=== PATIENT | male | born 1935 | race Caucasian/White ===

== ENCOUNTER → 2018-09-28 | Outpatient (CLI) | payer MEDICARE, BC, MEDICAID ==
[2018-09-28 15:35] LABS: BASO # 0.1 (0.0-0.2); BASO % 0.7 % (0.0-2.0); EOS # 0.3 (0.0-0.7); EOS % 3.8 % (0-4.0); GRAN # 5.2 (1.4-6.5); GRAN % 70.2 % (42.2-75.2); HEMATOCRIT 40.1 % (42.0-52.0); HEMOGLOBIN 13.2 g/dl (13.5-18.0); LYMPH # 0.8 (1.2-3.4); LYMPH % 11.3 % (20.0-51.0); MEAN CELL VOLUME 99 fl (80.0-100.0); MEAN CORPUSCULAR HEMOGLOBIN 33 pg (27.0-31.0); MEAN CORPUSCULAR HGB CONC 33 g/dl (33.0-37.0); MEAN PLATELET VOLUME 9.7 fl (7.4-10.4); MONO % 13.6 % (1.7-9.3); PLATELET COUNT 230 K/mm3 (130-400); RED BLOOD COUNT 4.06 M/mm3 (4.20-5.60); REDCELL DISTRIBUTION WIDTH-CV 13.1 % (11.5-14.5)
[2018-09-28 15:48] LABS: ALBUMIN 3.5 gm/dL (3.5-5.0); BILIRUBIN,TOTAL 0.5 mg/dL (0.0-1.0); CALCIUM 8.8 mg/dL (8.4-10.2); CREATININE, serum 1.68 (0.66-1.25); POTASSIUM 4.4 mmol/L (3.4-5.0); TOTAL PROTEIN 7.1 gm/dL (6.4-8.2)
== END ==
LOC: ZCOL.LAB 15:20
PROVIDERS: Nurse Practitioner Family
DX: N18.3 Chronic kidney disease, stage 3 (moderate) (principal); R41.82 Altered mental status, unspecified

== ENCOUNTER → 2018-11-24 | Outpatient (CLI) | payer MEDICARE, BC, MEDICAID ==
[2018-11-24 15:20] LABS: CALCIUM 8.6 mg/dL (8.4-10.2); CREATININE, serum 1.8 (0.66-1.25); POTASSIUM 4.4 mmol/L (3.4-5.0)
[2018-11-24 15:35] LABS: BASO # 0.1 (0.0-0.2); BASO % 0.7 % (0.0-2.0); EOS # 0.4 (0.0-0.7); EOS % 4.2 % (0-4.0); GRAN # 6.1 (1.4-6.5); GRAN % 63.5 % (42.2-75.2); HEMATOCRIT 45.1 % (42.0-52.0); HEMOGLOBIN 14.3 g/dl (13.5-18.0); LYMPH # 1.9 (1.2-3.4); LYMPH % 20.3 % (20.0-51.0); MEAN CELL VOLUME 101 fl (80.0-100.0); MEAN CORPUSCULAR HEMOGLOBIN 32 pg (27.0-31.0); MEAN CORPUSCULAR HGB CONC 32 g/dl (33.0-37.0); MEAN PLATELET VOLUME 10.1 fl (7.4-10.4); MONO % 10.8 % (1.7-9.3); PLATELET COUNT 187 K/mm3 (130-400); RED BLOOD COUNT 4.45 M/mm3 (4.20-5.60); REDCELL DISTRIBUTION WIDTH-CV 13.1 % (11.5-14.5)
== END ==
LOC: ZCOL.LAB 14:48
PROVIDERS: Nurse Practitioner Family
DX: I50.20 Unspecified systolic (congestive) heart failure (principal)

== ENCOUNTER 2021-05-24 03:46 | Emergency (ER) | payer MEDICARE, BC, MEDICAID ==
[~2021-05-24] VITALS: Ht 175.3 cm; Wt 81.8 kg
[2021-05-24 03:56] VITALS: TEMP 98.7
[2021-05-24 04:07] LABS: BASO % 0.1 % (0.0-2.0); GRAN # 9.9 K/mm3 (1.4-6.5); GRAN % 89.7 % (42.2-75.2); HEMATOCRIT 39.3 % (42.0-52.0); HEMOGLOBIN 13.2 g/dl (13.5-18.0); LYMPH # 0.3 K/mm3 (1.2-3.4); LYMPH % 2.4 % (20.0-51.0); MEAN CELL VOLUME 102 fl (80.0-100.0); MEAN CORPUSCULAR HEMOGLOBIN 34 pg (27-31); MEAN CORPUSCULAR HGB CONC 34 g/dl (33.0-37.0); MEAN PLATELET VOLUME 10.7 fl (7.4-10.4); MONO # 0.8 K/mm3 (0.1-0.6); MONO % 6.8 % (1.7-9.3); PLATELET COUNT 150 K/mm3 (130-400); RED BLOOD COUNT 3.87 M/mm3 (4.20-5.60); REDCELL DISTRIBUTION WIDTH-CV 13.5 % (11.5-14.5)
[2021-05-24 04:25] LABS: BILIRUBIN,TOTAL 0.9 mg/dL (0.2-1.2); CALCIUM 8.2 mg/dL (8.4-10.2); CREATININE, serum 2.39 mg/dL (0.72-1.25); POTASSIUM 4.9 mmol/L (3.5-4.5); TOTAL PROTEIN 6.6 gm/dL (6.2-8.1)
[2021-05-24 04:31] LABS: TROPONIN-I 0.023 ng/mL (0.00-0.033)
[2021-05-24 04:58] LABS: COLLECTION METHOD CLEAN CATCH
[2021-05-24 05:04] LABS: PH 5 (5-8); SQUAMOUS EPITHELIAL None Seen /hpf (0-10); URINE APPEARANCE Clear (CLEAR/HAZY); URINE BACTERIA None Seen /hpf (NONE SEEN); URINE BILIRUBIN Negative (NEGATIVE); URINE BLOOD Negative (NEGATIVE); URINE COLOR Yellow (YELLOW); URINE GLUCOSE Negative (NEGATIVE); URINE KETONE Negative (NEGATIVE); URINE LEUKOCYTE ESTERASE Negative (NEGATIVE); URINE NITRATE Negative (NEGATIVE); URINE PROTEIN(semi-quant) Negative (NEGATIVE); URINE RBC 0-2 /hpf (0-2); URINE UROBILINOGEN Negative (NEGATIVE)
[2021-05-24 07:15] VITALS: BP 103/64; PULSE 76
== END 2021-05-24 07:16 | disposition home or self-care (01) ==
LOC: COL.ER 03:46
PROVIDERS: Emergency Medicine
DX: U07.1 COVID-19 (principal); N17.9 Acute kidney failure, unspecified; D72.829 Elevated white blood cell count, unspecified; R74.01 Elevation of levels of liver transaminase levels; I25.10 Atherosclerotic heart disease of native coronary artery without angina pectoris; I50.9 Heart failure, unspecified
CPT/HCPCS: J7040

== ENCOUNTER 2021-05-29 11:12 | Inpatient (IN) | payer MEDICARE, BC, MEDICAID ==
[~2021-05-29] VITALS: Ht 175.3 cm; Wt 74.4 kg
[2021-05-29 11:57] LABS: HEMATOCRIT 43.6 % (42.0-52.0); HEMOGLOBIN 14.8 g/dl (13.5-18.0); MEAN CELL VOLUME 101 fl (80.0-100.0); MEAN CORPUSCULAR HEMOGLOBIN 34 pg (27-31); MEAN CORPUSCULAR HGB CONC 34 g/dl (33.0-37.0); MEAN PLATELET VOLUME 11.7 fl (7.4-10.4); PLATELET COUNT 119 K/mm3 (130-400); RED BLOOD COUNT 4.31 M/mm3 (4.20-5.60); REDCELL DISTRIBUTION WIDTH-CV 13.8 % (11.5-14.5)
[2021-05-29 12:19] LABS: ALBUMIN 2.7 gm/dL (3.4-4.8); BILIRUBIN,TOTAL 1.5 mg/dL (0.2-1.2); CALCIUM 8.3 mg/dL (8.4-10.2); CREATININE, serum 2.06 mg/dL (0.72-1.25); POTASSIUM 5.1 mmol/L (3.5-4.5); TOTAL PROTEIN 6.6 gm/dL (6.2-8.1)
[2021-05-29 12:35] LABS: NEUTROPHILS 96 % (42.0-75.2)
[2021-05-29 12:36] LABS: PLATELET ESTIMATE DECREASED (NORMAL)
[2021-05-29] MEDS ORDERED: LEVAQUIN 750MG750 M1 PO (12:39)
[2021-05-29] MEDS ORDERED: ASPIRIN E.C. 8181 MG PO (12:41)
[2021-05-29] MEDS ORDERED: CARDIZEM CD 18180 MG PO (12:41)
[2021-05-29] MEDS ORDERED: B-121000 MCG PO (12:42)
[2021-05-29] MEDS ORDERED: TYLENOL SU650 MG/SUP RC (13:57)
[2021-05-29] MEDS ORDERED: CORDARONE200 MG/TAB PO (14:00)
[2021-05-29] MEDS ORDERED: ARTIFICIAL TEAR15 M7 OP (14:01)
[2021-05-29] MEDS ORDERED: BANOPHEN MAXIMU1 CRE TOP (14:02)
[2021-05-29] MEDS ORDERED: LIPITOR 40MG TA40 MG PO (14:02)
[2021-05-29] MEDS ORDERED: GOOD NEIGHBOR P1 CRE TP (14:03)
[2021-05-29] MEDS ORDERED: GENTLE LAXATIVE10 MG RC (14:04)
[2021-05-29] MEDS ORDERED: BUSPAR10 MG PO (14:05)
[2021-05-29] MEDS ORDERED: BREO IH (14:05)
[2021-05-29] MEDS ORDERED: LEXAPRO20 MG PO (14:09)
[2021-05-29] MEDS ORDERED: FERROUS SU325 MG/TAB PO (14:10)
[2021-05-29] MEDS ORDERED: LEADER CLE17 GM/Dose PO (14:11)
[2021-05-29] MEDS ORDERED: PROAIR HFA0.09 MG/AC IH (14:14)
[2021-05-29] MEDS ORDERED: TYLENOL W/COD1 UDTAB PO (14:15)
[2021-05-29] MEDS ORDERED: HALLS9.1 MG PO (14:16)
[2021-05-29] MEDS ORDERED: HYDROCORTISONE30 G3 TP (14:17)
[2021-05-29] MEDS ORDERED: IMODIUM 2MG CAPS2 MG PO (14:17)
[2021-05-29] MEDS ORDERED: LASIX 20MG TABL20 MG PO (14:19)
[2021-05-29] MEDS ORDERED: SYNTHROID0.125 MG/T PO (14:20)
[2021-05-29] MEDS ORDERED: MILK OF MA400 MG/52 PO (14:21)
[2021-05-29] MEDS ORDERED: MUCINEX 60600 MG/TA1 PO (14:23)
[2021-05-29] MEDS ORDERED: MYLANTA MAXIMU355 M1 PO (14:24)
[2021-05-29] MEDS ORDERED: BASE, PCCA POLY1 FLA (14:25)
[2021-05-29] MEDS ORDERED: PROTONIX 40MG T40 MG PO (14:25)
[2021-05-29] MEDS ORDERED: PREPH RC (14:26)
[2021-05-29] MEDS ORDERED: ALDACTONE 25MG25 M1 PO (14:27)
[2021-05-29] MEDS ORDERED: TYLENOL 325MG325 MG PO (14:28)
[2021-05-29 16:09] VITALS: BP 115/57; PULSE 85; TEMP 98
--- NOTE | 2021-05-29 16:30 | NUR ---
Pt arrived to medical unit room 307 from ED. Oriented pt to room. A&Ox4. Heart rhythm afib per tele, rate controlled. Lungs coarse to auscultation. Pt noted to have wet sounding cough, denies productivity. Admission assessments and med rec completed. Pt on 8 L by oxymask. Denies pain or SOA. Taken off unit at this time for VQ scan. Pt's son updated and number placed on chart.
[2021-05-29 19:02] LABS: ARTERIAL BLD GAS O2 SATURATION 98.6 % (92-100); ARTERIAL BLD GAS TCO2 CT 21.5; ARTERIAL BLOOD GAS BASE EXCESS -7.3 (-2-2); ARTERIAL BLOOD GAS PCO2 47.2 mmHg (35-45); ARTERIAL BLOOD GAS pH 7.25 (7.35-7.45)
[2021-05-29 19:04] LABS: ARTERIAL BLOOD GAS PO2 157.5 mmHg (80-100)
--- NOTE | 2021-05-29 19:27 | NUR ---
182-This RN entered room to check on pt and found pt to have removed oxymask, fingers and face bluish in color. Placed oxymask back on pt and began talking to him, pt unable to answer verbally, only nodding. Set of vitals obtained, O2 sats 70%, HR 110s, BP 109/55. O2 increased to 15 L. Called ICU charge, medical charge, RT, house, and hospitalist. Remained w/pt monitoring O2 sats and encouraged pt to take deep breaths. 1831-ICU charge Emmy, RT, and supervisor malt house at bedside. Crash cart placed outside room. Pt hooked up to defibrillator set on monitor. RT began bagging pt. Sats reading 85-87%. 1835-BIPAP placed on pt, 25/04 100%. Sats increased to 90% 1841-EKG obtained. 1844-ABG drawn. At this time, pt resting in bed on BIPAP w/sats high 90s. Video monitor set up in pt's room for continuous monitoring as pt occasionally pulling at BIPAP mask. Report given to night cleaner nurse Lakeshia.
--- NOTE | 2021-05-29 19:45 | NUR ---
Received approval from TSERING Whipple to start amiodarone drip on Medical Floor.
[2021-05-29 20:00] VITALS: BP 99/69; PULSE 109; TEMP 97.9
[2021-05-29 23:19] VITALS: BP 97/64; PULSE 90; TEMP 97.7
--- NOTE | 2021-05-29 23:47 | NUR ---
AT 2004 AMIODARONE BOLUS INITATED TO LFA IV, LOW BP, RATE AT 110-115, 02 BIPAP 12/10 FIO2 60 PERCENT. AT 2014 BOLUS COMPLETE. PT TOLERATED WELL. SYSTOLIC REMAINS SOFT, PT REMAINS TACHYCARDIC. AT 2016 AMIO DRIP INITIATED AT 33.3CC/HR TO LFA IV. Q1 VITALS INTERVAL INITATED. THIS NURSE WILL ENSURE TO CONDUCT HOURLY ROUNDS AND CONTINUE TO CHECK IV SITE TO RULE OUT EXTRAVASATION/INFILTRATION. BED ALARM ON. PT VISIBLE TO NURSES STATION VIA MONITOR. PT REMAINS A/OX3, RESTING IN BED, NOT TOO VERBALLY ENGAGING AT THIS POINT, NO COGNITIVE CHANGES SINCE REPORT. NURSE WILL CONTINUE TO MONITOR.
[2021-05-30] VITALS (7 sets, daily range): BP systolic 92–101; BP diastolic 51–64; PULSE 82–107; TEMP 97.5–97.9
--- NOTE | 2021-05-30 00:47 | NUR ---
AT 0046 PT AMIODARONE DRIP CHANGED FROM 1MG/MIN TO 0.5MG/MIN AND INFUSING AT 17.267 PER HOUR TO LEFT FA IV. PT TOLERATING WELL. THIS NURSE WILL CONTINUE TO MONITOR.
--- NOTE | 2021-05-30 05:50 | NUR ---
DURING 0400 NURSE NOTICED PT'S LFA IV SITE REDENNED AND SLIGHTLY INFLAMED. THIS NURSE SUSPECTS INFILTRATION, HEAT PROVIDED, ARM ELEVATED. PT NOT GRIMACING TO TOUCH. NURSE WILL MONITOR. NEW IV INITATED ON RIGHT FOREARM.
--- NOTE | 2021-05-30 06:36 | NUR ---
UPON F.U OF PTS LFA PREVIOUS IV SITE REDNESS SUBISIDING, MILD SWELLING REMAINS. PT REMAINS A/OX4, NOT TOO VERBALLY RESPONSIVE BUT CAN HEAD NOD THAT HE IS NO PAIN AND CONFIRMS NOT TO TAKE OFF BIPAP. NODS IN AGREEMENT. 02 NEEDS UNCHANGED. REPORT GIVEN TO TSERING QUINTERO.
[2021-05-30 07:35] LABS: HEMOGLOBIN 13.5 g/dl (13.5-18.0); MEAN CELL VOLUME 100 fl (80.0-100.0); MEAN CORPUSCULAR HEMOGLOBIN 34 pg (27-31); MEAN CORPUSCULAR HGB CONC 34 g/dl (33.0-37.0); MEAN PLATELET VOLUME 12.2 fl (7.4-10.4); PLATELET COUNT 105 K/mm3 (130-400); RED BLOOD COUNT 4.01 M/mm3 (4.20-5.60); REDCELL DISTRIBUTION WIDTH-CV 13.7 % (11.5-14.5)
[2021-05-30 07:57] LABS: ALBUMIN 2.3 gm/dL (3.4-4.8); BILIRUBIN,TOTAL 1.8 mg/dL (0.2-1.2); CALCIUM 8.1 mg/dL (8.4-10.2); CREATININE, serum 2.36 mg/dL (0.72-1.25); POTASSIUM 4.6 mmol/L (3.5-4.5); TOTAL PROTEIN 5.7 gm/dL (6.2-8.1)
[2021-05-30 09:03] LABS: BAND 2 % (0-10); LYMPHOCYTE 1 % (20.0-51.0); NEUTROPHILS 92 % (42.0-75.2)
[2021-05-30 09:04] LABS: PLATELET ESTIMATE DECREASED (NORMAL)
[2021-05-30 10:10] LABS: COLLECTION METHOD CLEAN CATCH
--- NOTE | 2021-05-30 10:16 | NUR ---
PT IN BED, MORNING MEDICATIONS GIVEN. SHIFT ASSESSMENT COMPLETED. PT APPEARS VERY PALE AND COOL TO THE TOUCH. B/P LOW, AROUND 90/50. PT RESPONDS TO PAIN, WILL NOT FOLLOW AND COMMANDS. BIPAP ON AT THIS TIME. AMIODARONE GTT INFUSING. WILL CONTINUE TO MONITOR.
[2021-05-30 10:33] LABS: MUCOUS Present (NOT PRESENT); PH 5 (5-8); SQUAMOUS EPITHELIAL 0-2 /hpf (0-10); URINE APPEARANCE Hazy (CLEAR/HAZY); URINE BACTERIA None Seen /hpf (NONE SEEN); URINE BILIRUBIN Negative (NEGATIVE); URINE BLOOD Negative (NEGATIVE); URINE COLOR Amber (YELLOW); URINE GLUCOSE Negative (NEGATIVE); URINE KETONE Negative (NEGATIVE); URINE LEUKOCYTE ESTERASE Negative (NEGATIVE); URINE NITRATE Negative (NEGATIVE); URINE PROTEIN(semi-quant) Negative (NEGATIVE); URINE RBC 0-2 /hpf (0-2)
--- NOTE | 2021-05-30 10:53 | NUR ---
FREDERIC completed intake with son Tera Jasso [phone]. Son states that patient lives at [facility] but is unsure of which household with the assumption that he is in LTC. Son provides that patient utilizes a wheelchair and receives assistance with ADL's, PCP is Dr. Cruz, and pharmacy is [facility] he believes. Son states that he and his sisters Teressa Perez [phone], and Marcella [phone] are all DPOA/HC. Son provides plan is to return to [facility] if able to up on DC. SW will continue to follow. DC plan: return to [facility]
[2021-05-30 11:40] LABS: ARTERIAL BLD GAS O2 SATURATION 97.4 % (92-100); ARTERIAL BLD GAS TCO2 CT 20.2; ARTERIAL BLOOD GAS BASE EXCESS -5.8 (-2-2); ARTERIAL BLOOD GAS HCO3 19.1 meq/L (22-26); ARTERIAL BLOOD GAS PCO2 35.9 mmHg (35-45); ARTERIAL BLOOD GAS PO2 102.1 mmHg (80-100); ARTERIAL BLOOD GAS pH 7.34 (7.35-7.45)
--- NOTE | 2021-05-30 14:21 | NUR ---
[employer] faxed clinical updates to Adri.
[2021-05-31] VITALS (17 sets, daily range): BP systolic 87–122; BP diastolic 54–78; PULSE 72–116; TEMP 97–97.7
--- NOTE | 2021-05-31 04:31 | NUR ---
AT 0400 GOYAL INSERTED.16 COUDE. PT TOLERATED WELL. OUTPUT NOTED.
--- NOTE | 2021-05-31 06:20 | NUR ---
PT HAD A GREAT NIGHT. SLEPT MOST OF THE SHIFT. A/OX4, REMAINS NOT TOO VERBALLY RESPONSIVE BUT NODS YES/NO AND SOME WORDS. 02 NEEDS CONTINUED TO BE WEANED DOWN, BIPAP /, FIO2 30 PERCENT SATURATING 100 PERCENT. GOYAL C&D. REPOSITIONED Q2 (STAGE 1 COCCYX),AMNIO DRIP INFUSING AT 0.5,G/MIN TO LFA (PATENT AND FUNCTIONAL) ALL NEEDS MET THIS SHIFT. CALL LIGHT WITHIN REACH.
[2021-05-31 06:40] LABS: INR 1.2 (0.8-3.0); PROTHROMBIN TIME 13.5 SECONDS (9.7-12.8)
[2021-05-31 06:51] LABS: ALBUMIN 2.3 gm/dL (3.4-4.8); BILIRUBIN,DIRECT 1.4 mg/dL (0.0-0.5); BILIRUBIN,TOTAL 1.9 mg/dL (0.2-1.2); TOTAL PROTEIN 5.5 gm/dL (6.2-8.1)
[2021-05-31 09:53] LABS: CALCIUM 8.3 mg/dL (8.4-10.2); CREATININE, serum 2.51 mg/dL (0.72-1.25); POTASSIUM 4.6 mmol/L (3.5-4.5)
--- NOTE | 2021-05-31 10:19 | NUR ---
PT RESTING IN BED. MORNING MEDICATIONS GIVEN. SHIFT ASSESSMENT COMPLETED. PT ORIENTED AND ABLE TO ANSWER SOME QUESTIONS. AMIODARONE GTT INFUSING. NONBLANCHABLE PRESSURE SORE TO COCCYX. WILL CONTINUE TO MONITOR.
[2021-05-31 10:56] LABS: ARTERIAL BLD GAS TCO2 CT 22.5; ARTERIAL BLOOD GAS BASE EXCESS -3.2 (-2-2); ARTERIAL BLOOD GAS HCO3 21.4 meq/L (22-26); ARTERIAL BLOOD GAS PCO2 36.8 mmHg (35-45); ARTERIAL BLOOD GAS PO2 85.5 mmHg (80-100); ARTERIAL BLOOD GAS pH 7.38 (7.35-7.45)
[2021-06-01 03:16] VITALS: BP 101/64; PULSE 93; TEMP 97.2
--- NOTE | 2021-06-01 05:22 | NUR ---
Patient rested quietly in bed on the BiPap throughout the night. Unable to establish a second IV line so IV antibiotics had to be held, (this nurse and powerhouse electrician apprentice Maite tried). Patient continues on the amiodarone drip. Family inquiring about when patient will be off of isolation so they can come visit him.
[2021-06-01 07:54] LABS: HEMATOCRIT 38.5 % (42.0-52.0); HEMOGLOBIN 13.4 g/dl (13.5-18.0); MEAN CELL VOLUME 97 fl (80.0-100.0); MEAN CORPUSCULAR HEMOGLOBIN 34 pg (27-31); MEAN CORPUSCULAR HGB CONC 35 g/dl (33.0-37.0); MEAN PLATELET VOLUME 12.3 fl (7.4-10.4); PLATELET COUNT 108 K/mm3 (130-400); RED BLOOD COUNT 3.98 M/mm3 (4.20-5.60); REDCELL DISTRIBUTION WIDTH-CV 14.1 % (11.5-14.5)
[2021-06-01 07:56] LABS: INR 1.2 (0.8-3.0); PROTHROMBIN TIME 12.9 SECONDS (9.7-12.8)
[2021-06-01 08:07] LABS: ALBUMIN 2.2 gm/dL (3.4-4.8); BILIRUBIN,TOTAL 1.6 mg/dL (0.2-1.2); C-REACTIVE PROTEIN 5.59 mg/dL (0.00-0.50); CALCIUM 8.1 mg/dL (8.4-10.2); CREATININE, serum 2.54 mg/dL (0.72-1.25); POTASSIUM 4.6 mmol/L (3.5-4.5); TOTAL PROTEIN 5.4 gm/dL (6.2-8.1)
[2021-06-01 08:14] VITALS: BP 103/59; PULSE 64; TEMP 97.5
[2021-06-01 08:47] LABS: BURR CELLS 1+; LYMPHOCYTE 1 % (20.0-51.0); NEUTROPHILS 92 % (42.0-75.2); PLATELET ESTIMATE DECREASED (NORMAL); SCHISTOCYTES 1+
[2021-06-01 08:48] LABS: BAND 4 % (0-10); OVALOCYTES 1+
--- NOTE | 2021-06-01 09:12 | NUR ---
Call made to son Tera #[phone], he will set up a conference call with his sisters for today at noon.
--- NOTE | 2021-06-01 11:39 | NUR ---
Patient had amiodarone gtt running and it infiltrated. Physician notified. GTT discontinued. Patient currently has no IV access, plan is for PICC to be placed. Patient bipap dependent, will no his head 'yes' or 'no' to questions.
--- NOTE | 2021-06-01 12:29 | NUR ---
Held conference call with patient's children; Anitha Haley, and Teressa. They stated that they have had numerous discussions about the type of care the patient would want and he was very clear he wants everything done, including CPR. They are currently okay with following his wishes but understand that if things change they may need to be the decision makers. All three have my contact information and we plan to touch base tomorrow morning unless something changes before then. Care team notified of discussion and will continue current treatment plan.
[2021-06-01 12:44] VITALS: BP 92/66; PULSE 48; TEMP 97.5
[2021-06-01 16:21] VITALS: BP 98/63; PULSE 81; TEMP 97.5
--- NOTE | 2021-06-01 16:34 | NUR ---
Spoke with Crissy at [facility] who verifies this patient is from [facility] LTC. Clinical updates faxed to Crissy and patient will return to [facility]. Patient will only be able to go back to [facility] as long as his Bipap is night time use only.
--- NOTE | 2021-06-01 17:10 | NUR ---
Patient has remained on bipap all day, tolerating it well. Restraints removed by warehouse shift supervisor this AM, as patient is not agitated and does not attempt to pull at anything. Patient will occasionally adjust his mask for comfort. Patient's right arm is swollen where amiodarone gtt had been running, arm elevated. Mepilex applied to patient's bottom, area is reddened, unopened, and blanchable. Mepilex applied for extra cushion, as patient is very thin. Patient repositioned, floated w/ multiple pillows, and nahomy-care completed.
--- NOTE | 2021-06-01 17:13 | NUR ---
PICC placed and working well. Consent obtained from daughter,
[2021-06-01 21:38] VITALS: BP 88/56; PULSE 102; TEMP 97.5
[2021-06-02] VITALS (317 sets, daily range): BP systolic 90–109; BP diastolic 48–80; PULSE 96–112; TEMP 96.4–97.7; O2SAT 73–100
[2021-06-02 04:47] LABS: ARTERIAL BLD GAS O2 SATURATION 74.8 % (92-100); ARTERIAL BLD GAS TCO2 CT 18.9; ARTERIAL BLOOD GAS BASE EXCESS -7.3 (-2-2); ARTERIAL BLOOD GAS HCO3 17.8 meq/L (22-26); ARTERIAL BLOOD GAS PCO2 35.1 mmHg (35-45); ARTERIAL BLOOD GAS pH 7.32 (7.35-7.45)
[2021-06-02 06:38] LABS: HEMATOCRIT 37.7 % (42.0-52.0); HEMOGLOBIN 12.7 g/dl (13.5-18.0); MEAN CELL VOLUME 100 fl (80.0-100.0); MEAN CORPUSCULAR HEMOGLOBIN 34 pg (27-31); MEAN CORPUSCULAR HGB CONC 34 g/dl (33.0-37.0); MEAN PLATELET VOLUME 13.1 fl (7.4-10.4); PLATELET COUNT 90 K/mm3 (130-400); RED BLOOD COUNT 3.79 M/mm3 (4.20-5.60); REDCELL DISTRIBUTION WIDTH-CV 14.5 % (11.5-14.5)
[2021-06-02 07:02] LABS: ALANINE AMINOTRANSFERASE 600 U/L (0-55); ALBUMIN 2.1 gm/dL (3.4-4.8); ALKALINE PHOSPHATASE 62 U/L (40-150); ANION GAP 13 mmol/L (7-16); AST,SGOT 94 U/L (5-34); BILIRUBIN,TOTAL 1.6 mg/dL (0.2-1.2); C-REACTIVE PROTEIN 3.49 mg/dL (0.00-0.50); CALCIUM 7.8 mg/dL (8.4-10.2); CARBON DIOXIDE 17 mmol/L (23-31); CHLORIDE 114 mmol/L (98-107); CREATININE, serum 3.39 mg/dL (0.72-1.25); GLUCOSE 80 mg/dL (70-99); MAGNESIUM 2.4 mg/dL (1.6-2.6); POTASSIUM 4.8 mmol/L (3.5-4.5); SODIUM 144 mmol/L (136-145); TOTAL PROTEIN 5.2 gm/dL (6.2-8.1)
[2021-06-02 07:17] LABS: BLOOD UREA NITROGEN > 125 mg/dL (8-26)
[2021-06-02 08:45] LABS: BAND 2 % (0-10); BURR CELLS 1+; LYMPHOCYTE 7 % (20.0-51.0); NEUTROPHILS 88 % (42.0-75.2); OVALOCYTES 1+; PLATELET ESTIMATE DECREASED (NORMAL)
--- NOTE | 2021-06-02 08:49 | NUR ---
Received call from patient's son Tera. We discussed change in patient status and what he and his sisters are thinking in regards to care. Tera was clear that his dad would want everything done but would also like to talk with his sisters and the commercial intelligence manager to see what recommendations are moving forward. Tera asked about the visitors policy and when his dad can come out of isolation because it has been a really long time since he was able to see him as he was from [facility] and they had restricted visitors before the patient became ill.
--- NOTE | 2021-06-02 10:59 | NUR ---
Patient laying in bed, answering orientation questions currectly. Patient asked if he wanted to continue with all the treatment he is receiving, he nodded yes. Asked if he was still okay w/ intubation, patient nodded yes. Remains on continuous bipap w/ an FiO2 of 65%. Patient being repositioned frequently. Camera placed in the room w/ monitor at the desk to watch patient more closely.
--- NOTE | 2021-06-02 12:05 | NUR ---
Call made to son Tera to give update and notify him of the move to ICU. He was very thankful for the update and his only concern is if he would get the opportunity to see his dad. We discussed situations where that may be possible and that I would get his new nurse to touch base with him later today once things settle down a bit and all his procedures and consults have been completed.
--- NOTE | 2021-06-02 12:55 | NUR ---
On conference call with Dr. Bowser, son Tera, and daughter Teressa. Dr. Bowser explained to the family that he doesn't feel hemodialysis would be of any benefit to the patient and that he should look at comfort care instead. Dr. Bowser also stated he explained all this to the patient and he nodded in agreement of the treatment plan for no dialysis and to discuss comfort care. Notified ICU nurse taking over care of the patient and ICU director of children's request to visit patient before decision as well as pending decision and discussion with Dr. Bowser. ICU director agreed that the patient's children can come in and visit.
--- NOTE | 2021-06-02 13:18 | NUR ---
PT TO ICU AT 1244 FROM MEDICAL FLOOR. PT IS ALERT, ON BIPAP, MOVED TO ICU BED AND HOOKED UP TO ICU MONITOR. PT HAS GOYAL AND PICC LINE IN PLACE. FLUIDS ARE STARTED AT 50 ML/HR. PT DENIES PAIN. ASSESSMENT COMPLETED. VITAL SIGNS OBTAINED. PT GIVEN CALL LIGHT. PT NODS HEAD TO UNDERSTANDING HOW TO CALL FOR ASSISTANCE.
--- NOTE | 2021-06-02 15:00 | NUR ---
Patient's son & daughter arrive in ICU. Many questions answered about the process of transitioning to comfort care. Options discussed for removing bipap. PPE for COVID isolation provided & children at bedside for approximately 15 minutes. Upon exit from room the requested to talk amongst themselves & call their sister. Dr. Nicholas notified of their arrival & came to discuss plan of care with them.
[2021-06-03] VITALS (534 sets, daily range): BP systolic 80–95; BP diastolic 42–61; PULSE 113–114; TEMP 96.7–97.5; O2SAT 58–100
--- NOTE | 2021-06-03 07:35 | NUR ---
Patient on comfort care and is resting comfortably in bed. Had an uneventful night and was doing fairly well up until about 0600 when breathing changed and became more difficult for patient with bouts of apnea. Patient satting in the 80%s.
--- NOTE | 2021-06-03 10:05 | NUR ---
The patient was transferred down to the ICU. The patient's family decided to place the patient on comfort care. SW to continue to monitor.
[2021-06-03 11:39] LABS: HEMATOCRIT 39.8 % (42.0-52.0); HEMOGLOBIN 13.5 g/dl (13.5-18.0); MEAN CELL VOLUME 100 fl (80.0-100.0); MEAN CORPUSCULAR HEMOGLOBIN 34 pg (27-31); MEAN CORPUSCULAR HGB CONC 34 g/dl (33.0-37.0); MEAN PLATELET VOLUME 12.1 fl (7.4-10.4); PLATELET COUNT 98 K/mm3 (130-400); RED BLOOD COUNT 3.98 M/mm3 (4.20-5.60); REDCELL DISTRIBUTION WIDTH-CV 14.5 % (11.5-14.5)
[2021-06-03 12:03] LABS: CALCIUM 8.2 mg/dL (8.4-10.2); CREATININE, serum 3.99 mg/dL (0.72-1.25); POTASSIUM 5.4 mmol/L (3.5-4.5)
--- NOTE | 2021-06-03 13:16 | NUR ---
Multiple calls with family today. They were hesitant on their decision for comfort care this morning as the patient has stabilized with his oxygen needs so requested we run some lab work to see how that all looks. Call made at this time to his daughters specifically to discuss results. Dr. Nicholas aware of the conversations and is following along. Questions answered and encouraged the family to call me if any more arise.
--- NOTE | 2021-06-03 16:24 | NUR ---
Call made to son Tera to discuss possible discharge to [facility] tomorrow. His sister Teressa walked in as we were talking and he was able to share information with her as well. I told them he has finally moved rooms and they are able to visit him as he is out of isolation and also that any time for discharge and transport to [facility] will be pending a discussion with them tomorrow.
--- NOTE | 2021-06-03 18:42 | NUR ---
Pt arrived to floor via bed with ICU staff at 1600. Resting quietly, eyes opened briefely but otherwise resting with eyes closed. Family came at 1700 and guided to room. Denies needs, renuka lgive them time to see patient and continue to monitor.
--- NOTE | 2021-06-03 18:46 | NUR ---
Will give report to [facility] nurse who will resume care.
[2021-06-04 00:33] VITALS: BP 81/49; PULSE 103; TEMP 97.4
[2021-06-04 04:35] VITALS: BP 73/34; PULSE 101; TEMP 97.2
--- NOTE | 2021-06-04 06:07 | NUR ---
COMFORT MEASURES MAINTAINED THROUGH OUT THE NIGHT. B/P LOWERING BY THE HOUR, PULSES VERY WEAK, 02 1L. ALL NEEDS MET THIS SHIFT.
[2021-06-04 08:12] VITALS: BP 75/51; PULSE 95
[2021-06-04] MEDS ORDERED: TRANSDERM-0.5 MG/21 TD (08:52)
[2021-06-04] MEDS ORDERED: ROXANOL 20MG20 MG/ML PO (08:53)
[2021-06-04] MEDS ORDERED: ATIVAN 1MG T1 MG/TAB PO (08:53)
--- NOTE | 2021-06-04 08:56 | NUR ---
Received call from patient's daughter Teressa. Gave her a little update and she stated that she and her brother would be visiting this AM.
[2021-06-04] MEDS ORDERED: IPRATROPIUM BROM3 M1 IH (08:59)
[2021-06-04 11:58] VITALS: BP 75/41; PULSE 100
--- NOTE | 2021-06-04 13:05 | NUR ---
Family would like for this patient to go back to [facility] under comfort care. Contact made with [facility] and time arranged for them to pick this patient up at 1430. Physician staff made aware in addition to [facility].
--- NOTE | 2021-06-04 13:51 | NUR ---
Ems forms signed by PA. Patients RN notified of transfer time in addition to patient's daughter Teressa.
--- NOTE | 2021-06-04 15:00 | NUR ---
Patient is being trasnferred to [facility] with hospice services, [facility] providing the transportation
== END 2021-06-04 17:57 | disposition hospice, home (50) | DRG 871 ==
LOC: COL.ER 11:12 → ICU 12:51 → MEDICAL 12:51 → ICU 06-02 11:39 → MEDICAL 06-03 16:03
PROVIDERS: Family Medicine; Internal Medicine; Internal Medicine Gastroenterology; Internal Medicine Pulmonary Disease; Physician Assistant; Registered Nurse; Student in an Organized Health Care Education/Training Program; ADMIT Student in an Organized Health Care Education/Training Program
PROC: XW033E5 Introduction of Remdesivir Anti-infective into Peripheral Vein, Percutaneous Approach, New Technology Group 5 (ICD-10-PCS; principal; 2021-05-29)
PROC: 5A09457 Assistance with Respiratory Ventilation, 24-96 Consecutive Hours, Continuous Positive Airway Pressure (ICD-10-PCS; 2021-05-29)
PROC: 02HV33Z Insertion of Infusion Device into Superior Vena Cava, Percutaneous Approach (ICD-10-PCS; 2021-06-01)
DX: A41.89 Other specified sepsis (principal); U07.1 COVID-19; J96.01 Acute respiratory failure with hypoxia; J12.82 Pneumonia due to coronavirus disease 2019; J96.02 Acute respiratory failure with hypercapnia; G93.41 Metabolic encephalopathy; E87.2 Acidosis; J44.0 Chronic obstructive pulmonary disease with (acute) lower respiratory infection; N17.9 Acute kidney failure, unspecified; I48.19 Other persistent atrial fibrillation; E87.0 Hyperosmolality and hypernatremia; I25.10 Atherosclerotic heart disease of native coronary artery without angina pectoris; T38.0X5A Adverse effect of glucocorticoids and synthetic analogues, initial encounter; Z66 Do not resuscitate; I50.9 Heart failure, unspecified; K21.9 Gastro-esophageal reflux disease without esophagitis; E78.5 Hyperlipidemia, unspecified; E03.9 Hypothyroidism, unspecified; D69.6 Thrombocytopenia, unspecified; F32.A Depression, unspecified; E87.5 Hyperkalemia; N18.9 Chronic kidney disease, unspecified; L98.1 Factitial dermatitis; I27.20 Pulmonary hypertension, unspecified; Z79.82 Long term (current) use of aspirin; Z95.1 Presence of aortocoronary bypass graft; Z88.2 Allergy status to sulfonamides; Z51.5 Encounter for palliative care; Z23 Encounter for immunization
CPT/HCPCS: 99223-AI; 99232-AI; 99233-AI; 99239; A4217; A4314; A9540; C1751; J0248; J0282; J0696; J1100; J1644; J2060; J2270; J2543; J7030; J7050; J7060; J7131; J8540